=== PATIENT | female | born 1960 | race Caucasian/White ===

== ENCOUNTER 2018-07-29 08:22 | Day surgery (SDC) | payer OTHER ==
[2018-07-28 12:40] VITALS: BMI 41.8
[2018-07-29 08:59] LABS: URINE APPEARANCE CLOUDY; URINE BILIRUBIN NEGATIVE (<2.0 mg/dL); URINE COLOR AMBER; URINE GLUCOSE (UA) NEGATIVE (NEGATIVE); URINE KETONE NEGATIVE (NEGATIVE); URINE LEUK ESTERASE 2+ (NEGATIVE); URINE NITRITE NEGATIVE (NEGATIVE); URINE PROTEIN NEGATIVE (NEGATIVE); URINE UROBILINOGEN NEGATIVE mg/dL (0.2-1.0)
[2018-07-29 09:33] LABS: EPI CELLS MANY /HPF (FEW)
--- NOTE | 2018-07-29 09:40 | HP ---
Satellite H - Chief Complaint Chief Complaint: left shoulder pain - Past Medical History Allergies/Adverse Reactions: Allergies Allergy/AdvReac Type Severity Reaction Status Date / Time Penicillins Allergy "?" Verified 07/29/18 08:55 Sulfa (Sulfonamide Allergy "nausea,diz Verified 07/29/18 08:55 Antibiotics) zy" - Current Medications Current Medications: Home Medications Medication Instructions Recorded Amlodipine Besylate 2.5 mg PO DAILY 07/28/18 Hydrochlorothiazide [Hctz -] 25 mg PO DAILY 07/28/18 Losartan Potassium 50 mg PO DAILY 07/28/18 Multivitamin [One-Daily 1 each PO DAILY 07/28/18 Multi-Vitamin] Potassium Chloride [Klor-Con 10] 10 meq PO DAILY 07/28/18 metFORMIN HCL [Metformin HCl] 500 mg PO TID 07/28/18 Cholecalciferol (Vitamin D3) 500 unit PO DAILY 07/29/18 [Vitamin D -] Cyanocobalamin [Vitamin B12 -] 100 mcg PO DAILY 07/29/18 Oxycodone HCl/Acetaminophen 1 - 2 tab PO Q6H #30 tab MDD 6 07/29/18 [Percocet 5-325 mg Tablet] Satellite Physical Exam - Physical Examination Vital Signs: Vital Signs Period Temp Pulse Resp BP Sys/Blanco Pulse Ox Last 24 Hr 98.5 F 98 20 155/73 96 General Appearance: Well Nourished, Well Developed, Alert & Oriented x3 ENT: Clear Lung: Normal air movement Heart: Regular rate & rhythm Extremities: Other (left shoulder- + ttp, decr rom, + empty can, + neer, + carlson, nvi MRI + rct) Neurological: Intact, Alert, Oriented Satellite Impression/Plan - Impression/Plan Impression: left shoulder rct Operative Procedure: left shoulder arthroscopy with RCR, SAD Date to be Performed: 07/29/18
[2018-07-29] MEDS ORDERED: DEXAMETHASONE SOD PHOSPHATE/PF 10 MG/ML SDV ONE (11:13)
[2018-07-29] MEDS ORDERED: ROPIVACAINE HCL 0.5% 30ML VIAL ONE (11:13)
[2018-07-29] MEDS ORDERED: MIDAZOLAM HCL 2 MG/2 ML SINGLE DOSE VIAL ONE ×2 (11:14)
[2018-07-29] MEDS ORDERED: ROCURONIUM BROMIDE 50 MG/5 ML VIAL ONE (11:48)
[2018-07-29] MEDS ORDERED: LIDOCAINE HCL/PF 2% SDV 5ML VIAL ONE (11:49)
[2018-07-29] MEDS ORDERED: ESMOLOL HCL 100,000 MCG/10 ML VIAL ONE (11:49)
[2018-07-29] MEDS ORDERED: DEXAMETHASONE SOD PHOSPHATE 4 MG/1 ML VIAL ONE (11:49)
[2018-07-29] MEDS ORDERED: ceFAZolin SODIUM 1 GM VIAL ONE (11:49)
[2018-07-29] MEDS ORDERED: SODIUM CHLORIDE 0.9% P/F 10 ML VIAL IJ ONE (11:49)
[2018-07-29] MEDS ORDERED: ceFAZolin SODIUM 1 GM VIAL IVPB ONE (12:35)
--- NOTE | 2018-07-29 13:17 | OP ---
Operative Note - Note: Operative Date: 07/29/18 ([facility]) Pre-Operative Diagnosis: left shoulder rct, impingement Operation: left shoulder arthroscopy with MICHELET ABEL Post-Operative Diagnosis: Same as Pre-op Surgeon: Mykel Gutiérrez Production Floater: Osvaldo Dejesus Anesthesiologist/ASSISTANT PROFESSOR OF THEATER: Edmund Jang Anesthesia: General, Local Specimens Removed: shavings Estimated Blood Loss (mls): 5 Operative Report Dictated: Yes
[2018-07-29] MEDS ORDERED: GLYCOPYRROLATE 0.2 MG/1 ML VIAL ONE ×2 (13:29→13:31)
[2018-07-29] MEDS ORDERED: NEOSTIGMINE METHYLSULFATE 0.5 MG/ML - 10 ML MDV ONE (13:29)
[2018-07-29] MEDS ORDERED: KETOROLAC TROMETHAMINE 30 MG/1 ML VIAL ONE (13:29)
[2018-07-29] MEDS ORDERED: oxyCODONE HCL 5 MG TABLET PO PRN (14:01)
[2018-07-29] MEDS ORDERED: ONDANSETRON 4 MG/2 ML VIAL IVPUSH PRN (14:01)
[2018-07-29] MEDS ORDERED: LACTATED RINGERS SOLUTION 1,000 ML IV SCH (14:15)
--- NOTE | 2018-07-29 15:38 | OP ---
DATE OF OPERATION: 07/29/2018 PREOPERATIVE DIAGNOSIS: Left shoulder impingement syndrome, possible rotator cuff tear and adhesive capsulitis and acromioclavicular joint arthritis. POSTOPERATIVE DIAGNOSIS: Left shoulder subacromial impingement syndrome, acromioclavicular joint arthritis, partial undersurface rotator cuff tear. PROCEDURE PERFORMED: Left shoulder arthroscopy, subacromial decompression, distal clavicle excision, and manipulation under anesthesia. SURGEON: Ajay Luna MD ASSISTANTS: RAJ Perez; Tye Ortiz CRNA ANESTHESIA: Left interscalene block, LMA anesthesia. DRAINS: None. COMPLICATIONS: None. BLOOD LOSS: Minimal. BLOOD GIVEN: None. FLUID REPLACEMENT: 1000 mL PlasmaLyte. INDICATIONS: The patient is a 58-year-old female with the preoperative diagnosis of left shoulder impingement syndrome, possible rotator cuff tear, AC joint arthritis and adhesive capsulitis. After understanding the potential risks, complications, alternatives and benefits of surgery, and the risks of nonsurgical treatment, the patient elected to undergo this procedure. PROCEDURE: She received a left interscalene block. One gram of IV Ancef was given. LMA anesthesia was induced. She was placed into the beach-chair position. I then did a manipulation under anesthesia, and I was able to feel that I gained about 15 to 20 degrees of both forward flexion and abduction after manipulation, and felt gentle tearing of some tissues. After that she had a full range of motion. The left upper extremity was then prepped and draped in the usual sterile fashion. The bony landmarks were marked out with a marking pen. A posterior portal was established. A diagnostic glenohumeral arthroscopy was performed. The patient had a frayed labrum from the 10 o'clock to 3 o'clock position. It did no look like there was any large tear. The biceps tendon looked good. The humeral head looked good. The patient definitely had some significant glenoid arthritis. The patient also had a partial undersurface rotator cuff tear with some significant fraying. Therefore, an anterior portal was established. Under direct visualization, I used a spinal needle and a Green cannulate was indirect into the glenohumeral joint. Using a combination of the ArthroCare wand under the coagulation setting and the shaver, I was able to debride the undersurface of the rotator cuff and the labrum. I then put a probe in and probed the labrum. It was quite stable. There was no tear. I then put the arm through a full range of motion, after debriding the undersurface rotator cuff tear, and there was no portion that was torn. Next, our attention was turned to the subacromial space. The patient had a tremendous amount of inflammatory bursitis. A lateral portal was established using a spinal needle. A Green cannula was introduced into the subacromial space. An ArthroCare wand was used to do a soft tissue bursectomy. After extensive debridement of the bursa and both subdeltoids and subacromial, I was able to directly visualize the top surface of the rotator cuff and put the arm through a full range of motion. There was no top surface rotator cuff tear. It looked pristine. The bursectomy did reveal a large subacromial bony spur and a small subclavicular bony spur. Therefore, the 5.5-mm oval bur was used to do the bony decompression of both the distal clavicle and the acromion. I then fine-tuned it in reverse with the straight shaver. Overall it looked quite good. It was quite flat. The arm was put through a full range of motion. There were no points of impingement. The shaver was then reintroduced just to remove debris and excess saline. The area was washed and dried. All excess saline was removed. The arthroscopy portals were closed with 3-0 nylon sutures, and the 3 portals covered with a small Aquacel dressing. The patient was extubated, and brought down out of the beach-chair position in stable condition. There were no events during the case. She was brought to the ambulatory recovery room. Total operative time was about 50 minutes. AJAY LUNA M.D. [id number]
[2018-07-29 15:43] VITALS: TEMP 97.4
[2018-07-29 16:38] VITALS: BP 125/74; PULSE 83
--- NOTE | 2018-07-31 18:42 | PATH ---
Surgical Pathology Report Patient Name: SANTIAGO CATES [facility]. Rec. #: [id number] /Age/Gender: 1960 (Age: 58) / F Account: [id number] Location: [facility] SURGICAL Taken: 07/29/2018 Received: 07/30/2018 Reported: 07/31/2018 Physicians: Mykel Gutiérrez M.D. Specimen(s) Received LEFT SHOULDER SHAVINGS Clinical History Impingement syndrome left side Final Diagnosis SHOULDER SHAVINGS, LEFT, ARTHROSCOPY AND SUBACROMIAL DECOMPRESSION: FRAGMENTS OF BENIGN CARTILAGE, DENSE FIBROCONNECTIVE TISSUE, ADIPOSE TISSUE, BONE, SYNOVIUM, AND SKELETAL MUSCLE. Electronically Signed Sahra Valles M.D. Gross Description Received in formalin, labeled "left shoulder shavings," is a 5.0 x 3.5 x 0.6 cm. aggregate of nieto-brown soft tissue fragments. A counter sales representative portion is submitted in one cassette. /07/30/2018 saudi07/30/2018
== END 2018-07-29 16:50 | disposition home or self-care (01) ==
LOC: JASU-SURG 08:22
PROVIDERS: ATTEND Orthopaedic Surgery
PROC: 0RBK4ZZ Excision of Left Shoulder Joint, Percutaneous Endoscopic Approach (ICD-10-PCS; principal; 2018-07-29 10:30)
PROC: 0PBB4ZZ Excision of Left Clavicle, Percutaneous Endoscopic Approach (ICD-10-PCS; 2018-07-29 10:30)
DX: M75.42 Impingement syndrome of left shoulder (principal); M19.012 Primary osteoarthritis, left shoulder; M75.102 Unspecified rotator cuff tear or rupture of left shoulder, not specified as traumatic
CPT/HCPCS: 81003; 81015; 88304-TC; 94760